=== PATIENT | male | born 1990 ===

== ENCOUNTER 2018-04-26 00:51 | Emergency (ER) | payer SELFPAY ==
[2018-04-26] MEDS ORDERED: Lidocaine Hydrochloride 5 ML INJ ONE (01:14)
[2018-04-26] MEDS ORDERED: Bacitracin 500 Units/gm Oint Foilpak UD ONE (01:15)
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
[2018-04-26 02:36] VITALS: BP 131/84; PULSE 74; RESP 15; TEMP 97.6
[2018-04-26 06:35] VITALS: O2SAT 98
== END 2018-04-26 02:35 | disposition home or self-care (01) ==
LOC: C.ER 00:51
DX: S01.81XA Laceration without foreign body of other part of head, initial encounter (principal); Y00.XXXA Assault by blunt object, initial encounter; Y92.89 Other specified places as the place of occurrence of the external cause; Y99.0 Civilian activity done for income or pay